=== PATIENT | female | born 1995 | race Two or more races ===

== ENCOUNTER 2016-11-10 12:12 | Emergency (ER) | payer SELFPAY ==
[~2016-11-10 12:12] MED LIST: ALLERGY PILL PO; ANAPROX DS550 MG PO; BACTRIM DS TAB1 EAC2 PO; DOXYCYCLINE HY100 M3 PO; KEFLEX500 M4 PO; NO HOME MEDICATION XX; NORCO 5-325 TA1 EACH PO; NORCO 5/325 TAB1 TAB PO; NORCO 5/3251 TAB PO; PRENATAL1 EACH PO; ZOFRAN ODT4 MG PO; [UNRECOGNIZED DRUG - OTHER]
[2016-11-10] MEDS ORDERED: COMPAZINE10 MG PO (16:54)
[2016-11-10] MEDS ORDERED: NORCO 5-325 TA1 EACH PO (16:54)
== END 2016-11-10 17:07 ==
LOC: EDMED 12:12
DX: R10.9 Unspecified abdominal pain (principal)